=== PATIENT | female | born 1940 | race Hispanic/Latino ===

== ENCOUNTER 2020-10-16 11:09 | Outpatient (CLI) | payer MEDICARE ==
[2020-10-16 11:53] LABS: Basophils # (Auto) 0.1 K/mm3 (0.0-0.1); Basophils % (Auto) 1.1 % (0.0-1.8); Eosinophils # (Auto) 0.1 K/mm3 (0.0-0.4); Eosinophils % (Auto) 2.2 % (0.0-4.3); Hematocrit 42.1 % (30.3-42.9); Hemoglobin 14.3 gm/dl (10.1-14.3); Lymphocytes % (Auto) 44.6 % (13.4-35.0); Mean Corpuscular HGB Conc 34 % (30-34); Mean Corpuscular Volume 95 fl (79-97); Monocytes # (Auto) 0.5 K/mm3 (0.0-0.8); Monocytes % (Auto) 8.3 % (0.0-7.3); Platelet Count 297 K/mm3 (140-440); Red Blood Count 4.44 M/mm3 (3.65-5.03); Red Cell Distribution Width 13.7 % (13.2-15.2)
[2020-10-16 12:05] LABS: Alanine Aminotransferase 33 units/L (7-56); Albumin 4.7 g/dL (3.9-5); BUN/Creatinine Ratio 26; Blood Urea Nitrogen 21 mg/dL (7-17); Calcium 10.3 mg/dL (8.4-10.2); Hemolysis Index 12
[2020-10-16 12:55] LABS: Erythrocyte Sedimentation Rate 18 mm/Hr (0-20)
[2020-10-19 13:05] LABS: Vitamin D, 25-OH, D2 <4 ng/mL
[2020-10-20 05:38] LABS: Albumin 4.4 g/dL (3.8-4.8); Gamma Globulin 1.4 g/dL (0.8-1.7)
[2020-10-20 22:38] LABS: ANA Screen, IFA Positive (Negative)
== END 2020-10-16 11:10 | disposition home or self-care (01) ==
LOC: LAB 11:09
PROVIDERS: ATTEND Specialist
DX: G61.9 Inflammatory polyneuropathy, unspecified (principal); G61.0 Guillain-Barre syndrome; E07.9 Disorder of thyroid, unspecified; R73.03 Prediabetes
CPT/HCPCS: 36415; 80053; 82306; 82607; 83036; 83921; 84165; 84443; 85025; 85652; 86038; 86334; 86592